=== PATIENT | female | born 1980 | race Two or more races ===

== ENCOUNTER 2017-05-04 12:34 | Inpatient (IN) | payer BC ==
[~2017-05-04] VITALS: Ht 168.9 cm; Wt 67.0 kg
[2017-05-04] MEDS ORDERED: SODIUM CHLORIDE 0.9% 1,000ML IVBOLUS ONE (13:00)
[2017-05-04] MEDS ORDERED: ONDANSETRON 2MG/ML, 2ML IVPush ONE (13:00)
[2017-05-04] MEDS ORDERED: SODIUM CHLORIDE FLUSH 10ML SYR IVF ONE (13:00)
[2017-05-04 13:14] LABS: HEMATOCRIT 24.9 % (34.6-47.8); HEMOGLOBIN 8.1 g/dL (11.7-16.4); WHITE BLOOD COUNT 4.6 x10^3/uL (3.4-10)
[2017-05-04 13:25] LABS: ASPARTATE AMINO TRANSFERASE 9 U/L (15-37); BLOOD UREA NITROGEN 30 mg/dL (7-18)
[2017-05-04] MEDS ORDERED: ONDANSETRON 2MG/ML, 2ML ONE (13:26)
[2017-05-04 13:30] LABS: IS PT STATUS REG ER OR PRE ER? YES
[2017-05-04] MEDS ORDERED: HYDROmorphone 1 MG/ML, 1ML ONE ×2 (14:04→14:20)
[2017-05-04] MEDS: HYDROmorphone 1 MG/ML, 1ML IVPush PRN ×2 (14:07→14:23)
[2017-05-04] MEDS ORDERED: COLC0.6T37 PO (14:10)
[2017-05-04] MEDS ORDERED: LEVO175T2 PO (14:10)
[2017-05-04] MEDS ORDERED: LISI-167 PO (14:11)
[2017-05-04] MEDS ORDERED: LIOT25TA10 PO (14:11)
[2017-05-04] MEDS ORDERED: OXYC10TA6 PO (14:12)
[2017-05-04] MEDS ORDERED: HYDR2TAB29 PO (14:13)
[2017-05-04] MEDS ORDERED: CLON1TAB PO (14:13)
[2017-05-04] MEDS ORDERED: UBID100C41 PO (14:14)
[2017-05-04] MEDS ORDERED: CABE0.5T PO (14:14)
[2017-05-04] MEDS ORDERED: FERR324T5 PO (14:15)
[2017-05-04] MEDS ORDERED: VITA1TAB85 PO (14:15)
[2017-05-04] MEDS ORDERED: OMEG1CAP23 PO (14:16)
[2017-05-04] MEDS ORDERED: ACET325T14 PO (14:18)
[2017-05-04] MEDS ORDERED: LIDO700A42 TP (14:18)
[2017-05-04] MEDS ORDERED: hydrALAzine 20 MG/ML, 1ML IVPush PRN (14:30)
[2017-05-04] MEDS ORDERED: morphine SULFATE 10 MG/ML, 1ML IVPush PRN (14:30)
[2017-05-04] MEDS ORDERED: SODIUM CHLORIDE FLUSH 10ML SYR IVF PRN (14:30)
[2017-05-04] MEDS ORDERED: DOCUSATE 100 MG CAPSULE PO PRN (14:30)
[2017-05-04] MEDS ORDERED: BISACODYL 10 MG SUPP PR PRN (14:30)
[2017-05-04] MEDS ORDERED: OXYcodone IR 5MG TABLET PO PRN (14:30)
[2017-05-04] MEDS ORDERED: ONDANSETRON 2MG/ML, 2ML IVPush PRN (14:30)
[2017-05-04] MEDS ORDERED: POLYETHYLENE GLYCOL 17 GM PACKET PO PRN (14:30)
[2017-05-04 15:07] LABS: PATH.CAST-FLAG NOT PRESENT; SPERM-FLAG NOT PRESENT; SRC-FLAG NOT PRESENT; XTAL-FLAG NOT PRESENT; YLC-FLAG NOT PRESENT
[2017-05-04] MEDS ORDERED: SODIUM POLYSTYRENE SULFONATE ORAL SUSP PO ONE (15:30)
[2017-05-04] MEDS ORDERED: CEFTRIAXONE PMX 2GM/50ML 50 ML IV SCH (16:30)
[2017-05-04] MEDS: HEPARIN 5,000 UNITS/ML, 1ML SQ SCH (16:50)
[2017-05-04] MEDS: D5%-0.9% NACL 1,000 ML IV SCH (16:50)
[2017-05-04] MEDS: AZITHROMYCIN 500 MG in SODIUM CHLORIDE 0.9% 250 ML IV SCH (18:10)
[2017-05-04] MEDS: ONDANSETRON 2MG/ML, 2ML IVPush PRN (19:24)
[2017-05-04 19:31] VITALS: BP 110/75
[2017-05-04 20:00] VITALS: BP 112/73
[2017-05-04 20:34] LABS: IS PT STATUS REG ER OR PRE ER? NO
[2017-05-04] MEDS: LIOTHYRONINE 25 MCG TABLET PO SCH (21:00)
[2017-05-04] MEDS ORDERED: HYDROmorphone 2MG TABLET PO SCH (21:00)
[2017-05-04] MEDS: HYDROmorphone 1 MG/ML, 1ML IV PRN ×3 (21:18→22:40)
[2017-05-04] MEDS: COLCHICINE 0.6 MG TABLET PO SCH (21:18)
[2017-05-05] MEDS: HEPARIN 5,000 UNITS/ML, 1ML SQ SCH ×3 (01:27→17:45)
[2017-05-05] MEDS: D5%-0.9% NACL 1,000 ML IV SCH (02:18)
[2017-05-05 03:24] VITALS: BP 102/72
[2017-05-05 06:00] VITALS: BP 113/77
[2017-05-05] MEDS: ASPIRIN 325 MG TABLET EC PO SCH (06:04)
[2017-05-05] MEDS: LEVOTHYROXINE 175 MCG TABLET PO SCH (06:04)
[2017-05-05] MEDS: LIOTHYRONINE 25 MCG TABLET PO SCH ×2 (06:05→20:54)
[2017-05-05] MEDS: HYDROmorphone 1 MG/ML, 1ML IV PRN ×4 (06:07→21:15)
[2017-05-05 06:08] LABS: BLOOD UREA NITROGEN 25 mg/dL (7-18)
[2017-05-05 06:11] LABS: IS PT STATUS REG ER OR PRE ER? NO
[2017-05-05 06:12] LABS: ASPARTATE AMINO TRANSFERASE 5 U/L (15-37)
[2017-05-05 06:22] LABS: HEMOGLOBIN 7.4 g/dL (11.7-16.4); WHITE BLOOD COUNT 4.6 x10^3/uL (3.4-10)
[2017-05-05 07:01] LABS: HEMATOCRIT 22.7 % (34.6-47.8)
[2017-05-05 07:03] LABS: ANISOCYTOSIS 1+; OVALOCYTES 1+; POIKILOCYTOSIS 1+
[2017-05-05 07:05] LABS: POLYCHROMASIA 1+
[2017-05-05 08:02] VITALS: BP 112/77
[2017-05-05] MEDS ORDERED: COLCHICINE 0.6 MG TABLET PO SCH (09:00)
[2017-05-05] MEDS: LACTOBACILLUS 1GM/ PACKET PO SCH (09:20)
[2017-05-05] MEDS: FERROUS SULFATE 325 MG TABLET PO SCH ×2 (09:20→18:34)
[2017-05-05] MEDS: COLCHICINE 0.6 MG TABLET PO SCH ×2 (09:21→20:54)
[2017-05-05] MEDS: OMEGA-3/FISH OIL CAPSULE PO SCH (09:21)
[2017-05-05] MEDS ORDERED: CEFTRIAXONE 2,000 MG in DEXTROSE 5% 50 ML IV SCH ×2 (09:30→16:30)
[2017-05-05] MEDS ORDERED: DARBEPOETIN 25 MCG/ML SQ ONE (14:00)
[2017-05-05] MEDS: OXYcodone IR 5MG TABLET PO PRN (16:07)
[2017-05-05] MEDS ORDERED: SODIUM POLYSTYRENE SULFONATE ORAL SUSP PO ONE (16:30)
[2017-05-05 17:43] LABS: ANA SCREEN NEGATIVE (Negative)
[2017-05-05 18:00] LABS: FERRITIN 1255.1 ng/mL (8-252)
[2017-05-05] MEDS: AZITHROMYCIN 500 MG in SODIUM CHLORIDE 0.9% 250 ML IV SCH (18:25)
[2017-05-05] MEDS: ONDANSETRON 2MG/ML, 2ML IVPush PRN (18:59)
[2017-05-06] VITALS (9 sets, daily range): BP systolic 111–141; BP diastolic 74–97
[2017-05-06] MEDS: HEPARIN 5,000 UNITS/ML, 1ML SQ SCH ×3 (00:07→17:57)
[2017-05-06] MEDS: HYDROmorphone 1 MG/ML, 1ML IV PRN ×5 (00:27→21:30)
[2017-05-06] MEDS: ASPIRIN 325 MG TABLET EC PO SCH (06:12)
[2017-05-06] MEDS: LEVOTHYROXINE 175 MCG TABLET PO SCH (06:12)
[2017-05-06 07:17] LABS: WHITE BLOOD COUNT 4.6 x10^3/uL (3.4-10)
[2017-05-06 07:26] LABS: BLOOD UREA NITROGEN 20 mg/dL (7-18)
[2017-05-06 07:31] LABS: HEMATOCRIT 21.3 % (34.6-47.8)
[2017-05-06] MEDS ORDERED: MAGNESIUM SULFATE PMX 2GM/50ML 50 ML IV ONE (08:00)
[2017-05-06] MEDS: LACTOBACILLUS 1GM/ PACKET PO SCH (09:00)
[2017-05-06] MEDS: ONDANSETRON 2MG/ML, 2ML IVPush PRN (10:23)
[2017-05-06] MEDS: OMEGA-3/FISH OIL CAPSULE PO SCH (10:36)
[2017-05-06] MEDS: MAGNESIUM CHLORIDE 64 MG TABLET.DR PO SCH ×2 (10:36→21:30)
[2017-05-06] MEDS: COLCHICINE 0.6 MG TABLET PO SCH ×2 (10:37→21:30)
[2017-05-06] MEDS: LIOTHYRONINE 25 MCG TABLET PO SCH (10:39)
[2017-05-06] MEDS: FERROUS SULFATE 325 MG TABLET PO SCH (13:00)
[2017-05-06] MEDS ORDERED: FUROSEMIDE 20 MG/2 ML IV ONE ×2 (13:00→16:00)
[2017-05-06] MEDS: LACTOBACILLUS CHEW TABLET PO SCH ×2 (13:00→21:30)
[2017-05-06] MEDS: OXYcodone IR 5MG TABLET PO PRN ×2 (13:00→18:43)
[2017-05-06 14:07] LABS: COMPLEMENT C3 121 mg/dL (82-167); COMPLEMENT C4 36 mg/dL (14-44); INTERMYOFIBRILLAR AB Negative (Neg:<1:20); MITOCHONDRIAL (M2) AB 6.1 Units (0.0-20.0); PARIETAL CELL AB 6.5 Units (0.0-20.0); RA LATEX TURBIDITY <10.0 IU/mL (0.0-13.9); SARCOLEMMA AB Negative (Neg:<1:20); STRIATION AB Negative (Neg:<1:40); THYROID PEROXIDASE (TPO) AB 20 IU/mL (0-34)
[2017-05-06 14:22] LABS: ANTISTREPTOLYSIN-O TITER 200 IU/mL
[2017-05-06] MEDS: LIOTHYRONINE 5 MCG TABLET PO SCH (16:23)
[2017-05-07] MEDS: HYDROmorphone 1 MG/ML, 1ML IV PRN ×6 (00:34→22:30)
[2017-05-07] MEDS: HEPARIN 5,000 UNITS/ML, 1ML SQ SCH ×3 (00:34→18:15)
[2017-05-07] MEDS: ACETAMINOPHEN 325 MG TABLET PO PRN ×4 (01:49→21:08)
[2017-05-07 02:00] VITALS: BP 122/82
[2017-05-07] MEDS: LEVOTHYROXINE 175 MCG TABLET PO SCH (06:25)
[2017-05-07] MEDS: ASPIRIN 325 MG TABLET EC PO SCH (06:26)
[2017-05-07] MEDS: OXYcodone IR 5MG TABLET PO PRN (08:29)
[2017-05-07] MEDS: MAGNESIUM CHLORIDE 64 MG TABLET.DR PO SCH ×2 (08:29→21:08)
[2017-05-07] MEDS: HYDROXYCHLOROQUINE 200 MG TABLET PO SCH (08:29)
[2017-05-07] MEDS: LACTOBACILLUS CHEW TABLET PO SCH ×2 (08:30→21:07)
[2017-05-07] MEDS: FERROUS SULFATE 325 MG TABLET PO SCH (08:30)
[2017-05-07] MEDS: COLCHICINE 0.6 MG TABLET PO SCH ×2 (08:30→21:08)
[2017-05-07] MEDS: LIOTHYRONINE 25 MCG TABLET PO SCH (08:35)
[2017-05-07 09:35] VITALS: BP 157/99
[2017-05-07 09:59] LABS: HEP B SURF. AB 414.3 mIU/mL (0.0-10.0)
[2017-05-07 10:35] LABS: HEPATITIS A ANTIBODY TOTAL Reactive (Nonreactive)
[2017-05-07 11:59] LABS: PTH INTACT INTERPRETATION ** Comment **
[2017-05-07 12:13] LABS: BLOOD UREA NITROGEN 19 mg/dL (7-18)
[2017-05-07 12:23] LABS: HEMATOCRIT 29.7 % (34.6-47.8); HEMOGLOBIN 9.9 g/dL (11.7-16.4); WHITE BLOOD COUNT 5.6 x10^3/uL (3.4-10)
[2017-05-07 12:35] LABS: PARATHYROID HORMONE INTACT 44.2 pg/mL (14-72)
[2017-05-07] MEDS ORDERED: ARANESP 25 MCG/ML **ESRD SQ SCH (13:00)
[2017-05-07 15:19] VITALS: BP 125/81
[2017-05-07] MEDS ORDERED: ARANESP 25 MCG/ML **ESRD SQ ONE ×2 (15:30)
[2017-05-07] MEDS: LIOTHYRONINE 5 MCG TABLET PO SCH (18:15)
[2017-05-07 20:00] VITALS: BP 148/99
[2017-05-07] MEDS: OMEGA-3/FISH OIL CAPSULE PO SCH (21:08)
[2017-05-07] MEDS: FLUTICASONE NASAL SPRAY 16GM NAS SCH (21:08)
[2017-05-08 02:00] VITALS: BP 135/89
[2017-05-08] MEDS: HYDROmorphone 1 MG/ML, 1ML IV PRN ×6 (04:52→22:55)
[2017-05-08] MEDS: HEPARIN 5,000 UNITS/ML, 1ML SQ SCH ×3 (04:52→20:56)
[2017-05-08] MEDS: ASPIRIN 325 MG TABLET EC PO SCH (06:33)
[2017-05-08] MEDS: LEVOTHYROXINE 175 MCG TABLET PO SCH (06:33)
[2017-05-08] MEDS: LIOTHYRONINE 25 MCG TABLET PO SCH (08:00)
[2017-05-08] MEDS: OMEGA-3/FISH OIL CAPSULE PO SCH (09:00)
[2017-05-08] MEDS: FLUTICASONE NASAL SPRAY 16GM NAS SCH ×2 (09:21→20:55)
[2017-05-08] MEDS: FERROUS SULFATE 325 MG TABLET PO SCH (09:23)
[2017-05-08] MEDS: LACTOBACILLUS CHEW TABLET PO SCH ×2 (09:23→20:55)
[2017-05-08] MEDS: MAGNESIUM CHLORIDE 64 MG TABLET.DR PO SCH ×2 (09:23→20:56)
[2017-05-08] MEDS: COLCHICINE 0.6 MG TABLET PO SCH ×2 (09:23→20:56)
[2017-05-08] MEDS: ACETAMINOPHEN 325 MG TABLET PO PRN ×2 (09:37→16:49)
[2017-05-08] MEDS: HYDROXYCHLOROQUINE 200 MG TABLET PO SCH (09:38)
[2017-05-08 10:47] VITALS: BP 149/98
[2017-05-08 14:16] VITALS: BP 142/92
[2017-05-08 14:33] LABS: ASPARTATE AMINO TRANSFERASE 11 U/L (15-37); BLOOD UREA NITROGEN 17 mg/dL (7-18)
[2017-05-08] MEDS: LIOTHYRONINE 5 MCG TABLET PO SCH (16:15)
[2017-05-08] MEDS: CEPHALEXIN 500 MG CAPSULE PO SCH ×2 (16:15→20:55)
[2017-05-08] MEDS: OXYcodone IR 5MG TABLET PO PRN (18:06)
[2017-05-08 19:37] VITALS: BP 142/91
[2017-05-08] MEDS: ONDANSETRON 2MG/ML, 2ML IVPush PRN (19:55)
[2017-05-08] MEDS: LISINOPRIL 10 MG TABLET PO SCH (19:56)
[2017-05-08] MEDS ORDERED: POLYETHYLENE GLYCOL 17 GM PACKET PO PRN (20:00)
[2017-05-08] MEDS: CALCIUM CARBONATE 500 MG TAB.CHEW PO PRN (21:40)
[2017-05-09 01:00] VITALS: BP 158/105
[2017-05-09] MEDS: HYDROmorphone 1 MG/ML, 1ML IV PRN ×6 (02:09→21:50)
[2017-05-09 02:13] VITALS: BP 149/93
[2017-05-09] MEDS: HEPARIN 5,000 UNITS/ML, 1ML SQ SCH ×3 (05:05→21:01)
[2017-05-09] MEDS: ACETAMINOPHEN 325 MG TABLET PO PRN ×3 (05:05→19:01)
[2017-05-09] MEDS: OXYcodone IR 5MG TABLET PO PRN ×4 (05:05→22:56)
[2017-05-09] MEDS: LEVOTHYROXINE 175 MCG TABLET PO SCH (06:31)
[2017-05-09] MEDS: ASPIRIN 325 MG TABLET EC PO SCH (06:31)
[2017-05-09 08:45] VITALS: BP 153/96
[2017-05-09] MEDS: COLCHICINE 0.6 MG TABLET PO SCH ×2 (08:52→21:00)
[2017-05-09] MEDS: LACTOBACILLUS CHEW TABLET PO SCH ×2 (08:53→21:01)
[2017-05-09] MEDS: FERROUS SULFATE 325 MG TABLET PO SCH (08:53)
[2017-05-09] MEDS: HYDROXYCHLOROQUINE 200 MG TABLET PO SCH (08:53)
[2017-05-09] MEDS: CEPHALEXIN 500 MG CAPSULE PO SCH ×3 (08:53→21:01)
[2017-05-09] MEDS: FLUTICASONE NASAL SPRAY 16GM NAS SCH ×2 (08:54→21:00)
[2017-05-09] MEDS: OMEGA-3/FISH OIL CAPSULE PO SCH (08:54)
[2017-05-09] MEDS: LIOTHYRONINE 25 MCG TABLET PO SCH (08:56)
[2017-05-09] MEDS: LISINOPRIL 10 MG TABLET PO SCH (10:26)
[2017-05-09 10:54] LABS: BLOOD UREA NITROGEN 16 mg/dL (7-18)
[2017-05-09 10:59] LABS: ASPARTATE AMINO TRANSFERASE 11 U/L (15-37)
[2017-05-09 11:12] LABS: HEMATOCRIT 25.2 % (34.6-47.8); HEMOGLOBIN 8.4 g/dL (11.7-16.4); WHITE BLOOD COUNT 4.8 x10^3/uL (3.4-10)
[2017-05-09] MEDS ORDERED: MAGNESIUM SULFATE PMX 2GM/50ML 50 ML IV ONE (11:30)
[2017-05-09 13:20] VITALS: BP 130/86
[2017-05-09] MEDS: LIOTHYRONINE 5 MCG TABLET PO SCH (17:08)
[2017-05-09] MEDS ORDERED: DOCUSATE 100 MG CAPSULE PO PRN (20:00)
[2017-05-09] MEDS ORDERED: BISACODYL 10 MG SUPP PR PRN (20:00)
[2017-05-09] MEDS ORDERED: POLYETHYLENE GLYCOL 17 GM PACKET PO PRN (20:00)
[2017-05-09 21:40] VITALS: BP 132/89
[2017-05-10] MEDS: HYDROmorphone 1 MG/ML, 1ML IV PRN ×6 (01:32→22:28)
[2017-05-10 02:46] VITALS: BP 150/78
[2017-05-10] MEDS: HEPARIN 5,000 UNITS/ML, 1ML SQ SCH ×3 (05:21→19:25)
[2017-05-10] MEDS: ASPIRIN 325 MG TABLET EC PO SCH (05:24)
[2017-05-10] MEDS: LEVOTHYROXINE 175 MCG TABLET PO SCH (05:24)
[2017-05-10] MEDS: OXYcodone IR 5MG TABLET PO PRN ×3 (07:15→21:35)
[2017-05-10] MEDS: LISINOPRIL 10 MG TABLET PO SCH (07:15)
[2017-05-10 08:06] LABS: HEMATOCRIT 26.8 % (34.6-47.8); WHITE BLOOD COUNT 5.4 x10^3/uL (3.4-10)
[2017-05-10 08:18] LABS: BLOOD UREA NITROGEN 17 mg/dL (7-18)
[2017-05-10] MEDS: LACTOBACILLUS CHEW TABLET PO SCH ×2 (09:48→19:25)
[2017-05-10] MEDS: COLCHICINE 0.6 MG TABLET PO SCH ×2 (09:49→19:41)
[2017-05-10] MEDS: FLUTICASONE NASAL SPRAY 16GM NAS SCH ×2 (09:49→19:21)
[2017-05-10] MEDS: LIOTHYRONINE 25 MCG TABLET PO SCH (09:50)
[2017-05-10] MEDS: OMEGA-3/FISH OIL CAPSULE PO SCH (09:50)
[2017-05-10] MEDS: ACETAMINOPHEN 325 MG TABLET PO PRN (09:50)
[2017-05-10] MEDS: CEPHALEXIN 500 MG CAPSULE PO SCH ×3 (09:51→19:25)
[2017-05-10] MEDS: FERROUS SULFATE 325 MG TABLET PO SCH (09:51)
[2017-05-10] MEDS: HYDROXYCHLOROQUINE 200 MG TABLET PO SCH (10:07)
[2017-05-10 14:06] VITALS: BP 145/96
[2017-05-10] MEDS: ONDANSETRON 2MG/ML, 2ML IVPush PRN (15:54)
[2017-05-10] MEDS: CALCIUM CARBONATE 500 MG TAB.CHEW PO PRN (15:54)
[2017-05-10 16:44] VITALS: BP 145/97
[2017-05-10] MEDS: LIOTHYRONINE 5 MCG TABLET PO SCH (16:47)
[2017-05-10 17:06] LABS: G-6-PD QUANT 307 (146-376); RBC 2.82 x10E6/uL (3.77-5.28)
[2017-05-10 19:38] VITALS: BP 143/96
[2017-05-11] MEDS: HYDROmorphone 1 MG/ML, 1ML IV PRN ×4 (02:03→12:24)
[2017-05-11 02:04] VITALS: BP 160/85
[2017-05-11] MEDS: ASPIRIN 325 MG TABLET EC PO SCH (06:19)
[2017-05-11] MEDS: LEVOTHYROXINE 175 MCG TABLET PO SCH (06:20)
[2017-05-11] MEDS: HEPARIN 5,000 UNITS/ML, 1ML SQ SCH ×2 (06:20→13:00)
[2017-05-11 08:00] VITALS: BP 140/95
[2017-05-11 08:37] LABS: ASPARTATE AMINO TRANSFERASE 15 U/L (15-37); BLOOD UREA NITROGEN 21 mg/dL (7-18); C-REACTIVE PROTEIN, QUANT 0.91 mg/dL (0.02-0.49)
[2017-05-11] MEDS: LIOTHYRONINE 25 MCG TABLET PO SCH (09:06)
[2017-05-11] MEDS: FLUTICASONE NASAL SPRAY 16GM NAS SCH (09:06)
[2017-05-11 09:07] LABS: LYME DISEASE IGG/IGM TOTAL AB <0.91 ISR (0.00-0.90); LYME DISEASE IGM <0.80 index (0.00-0.79)
[2017-05-11] MEDS: LACTOBACILLUS CHEW TABLET PO SCH (09:07)
[2017-05-11] MEDS: CEPHALEXIN 500 MG CAPSULE PO SCH (09:07)
[2017-05-11] MEDS: LISINOPRIL 10 MG TABLET PO SCH (09:07)
[2017-05-11] MEDS: HYDROXYCHLOROQUINE 200 MG TABLET PO SCH (09:07)
[2017-05-11] MEDS: COLCHICINE 0.6 MG TABLET PO SCH (09:08)
[2017-05-11] MEDS: FERROUS SULFATE 325 MG TABLET PO SCH (09:08)
[2017-05-11] MEDS: OMEGA-3/FISH OIL CAPSULE PO SCH (09:09)
[2017-05-11] MEDS ORDERED: FURO20TA3 PO (11:59)
[2017-05-11] MEDS ORDERED: LISI-167 PO (11:59)
[2017-05-11] MEDS ORDERED: PRED10TA PO (11:59)
[2017-05-11] MEDS ORDERED: CEPH-376 PO (11:59)
[2017-05-11] MEDS ORDERED: HYDR200T5 PO (11:59)
[2017-05-11] MEDS ORDERED: COLC0.6T37 PO (11:59)
[2017-05-11] MEDS ORDERED: FUROSEMIDE 20 MG TABLET PO ONE (12:00)
[2017-05-11] MEDS: OXYcodone IR 5MG TABLET PO PRN (13:33)
[2017-05-11 14:06] LABS: IGG SUBCLASS 1 418 mg/dL (248-810); IGG SUBCLASS 2 79 mg/dL (130-555); IGG SUBCLASS 3 19 mg/dL (15-102); IGG SUBCLASS 4 6 mg/dL (2-96); IMMUNOGLOBULIN G 532 mg/dL (700-1600)
[2017-05-11 14:06] LABS: PROTEINASE 3 (PR-3) AB <3.5 U/mL (0.0-3.5)
[2017-05-11] MEDS ORDERED: OXYC5TAB3 PO (14:22)
[2017-05-11 16:06] LABS: ANTIRIBOSOMAL P ABS <0.2 AI (0.0-0.9); CHROMATIN AB <0.2 AI (0.0-0.9)
[2017-05-12 10:06] LABS: DILUTE RUSSELL'S VIPER VENOM 61.4 sec (0.0-47.0); PT 10.7 sec (9.6-11.5); aPTT 29.4 sec (22.9-30.2)
[2017-05-12 12:06] LABS: INTERPRETATION Note (.)
== END 2017-05-11 15:00 | disposition home or self-care (01) | DRG 314 ==
LOC: ED 14:10 → EDIP 14:11 → ED 14:29 → 4WST 15:50 → DCLOUNGE 05-11 13:48
PROVIDERS: ADMIT Hospitalist; ATTEND Hospitalist
PROC: 30233N1 Transfusion of Nonautologous Red Blood Cells into Peripheral Vein, Percutaneous Approach (ICD-10-PCS; principal; 2017-05-06)
DX: I31.9 Disease of pericardium, unspecified (principal); E43 Unspecified severe protein-calorie malnutrition; J18.9 Pneumonia, unspecified organism; A69.20 Lyme disease, unspecified; B60.0 Babesiosis; N17.9 Acute kidney failure, unspecified; D68.61 Antiphospholipid syndrome; D68.62 Lupus anticoagulant syndrome; N18.4 Chronic kidney disease, stage 4 (severe); D80.3 Selective deficiency of immunoglobulin G [IgG] subclasses; I13.0 Hypertensive heart and chronic kidney disease with heart failure and stage 1 through stage 4 chronic kidney disease, or unspecified chronic kidney disease; I38 Endocarditis, valve unspecified; J98.11 Atelectasis; E87.5 Hyperkalemia; D69.6 Thrombocytopenia, unspecified; E86.0 Dehydration; D63.8 Anemia in other chronic diseases classified elsewhere; E03.9 Hypothyroidism, unspecified; E05.00 Thyrotoxicosis with diffuse goiter without thyrotoxic crisis or storm; Z68.23 Body mass index [BMI] 23.0-23.9, adult; E87.6 Hypokalemia; G89.29 Other chronic pain; I34.0 Nonrheumatic mitral (valve) insufficiency; I50.9 Heart failure, unspecified; J02.0 Streptococcal pharyngitis; K21.9 Gastro-esophageal reflux disease without esophagitis; M32.14 Glomerular disease in systemic lupus erythematosus; N05.9 Unspecified nephritic syndrome with unspecified morphologic changes; N83.209 Unspecified ovarian cyst, unspecified side; N92.6 Irregular menstruation, unspecified; N93.8 Other specified abnormal uterine and vaginal bleeding; R76.8 Other specified abnormal immunological findings in serum; Z79.52 Long term (current) use of systemic steroids; Z82.49 Family history of ischemic heart disease and other diseases of the circulatory system; Z86.19 Personal history of other infectious and parasitic diseases; Z86.73 Personal history of transient ischemic attack (TIA), and cerebral infarction without residual deficits; Z87.891 Personal history of nicotine dependence
CPT/HCPCS: 36415; 71010; 76770; 80048; 80053; 80061; 81001; 82306; 82310; 82330; 82570; 82607; 82728; 82784; 82787; 82955; 83036; 83516; 83520; 83540; 83550; 83605; 83690; 83735; 83970; 84100; 84134; 84146; 84156; 84439; 84443; 84466; 84484; 84550; 84703; 85025; 85041; 85045; 85598; 85610; 85613; 85651; 85670; 85730; 86038; 86060; 86063; 86140; 86146; 86147; 86160; 86225; 86235; 86255; 86256; 86376; 86431; 86480; 86618; 86663; 86664; 86665; 86704; 86705; 86706; 86708; 86709; 86803; 86850; 86900; 86923; 87040; 87070; 87205; 87340; 87498; 87633; 93005; 93306; 96361; 96374; 96375; J0456; J0696; J0881; J0882; J1170; J1644; J2405; J7042; J7512; 86226; J1940; J2270; J3475; J7030; J7050; P9016